=== PATIENT | male | born 1980 | race Caucasian/White ===

== ENCOUNTER 2023-03-13 22:15 | Emergency (ER) | payer OTHER, SELFPAY ==
[2023-03-13 22:20] VITALS: BP 122/78; PULSE 70; RESP 18; TEMP 36.4; O2SAT 100; BMI 20.1
--- NOTE | 2023-03-14 01:22 | ED_ITS ---
HPI - General Adult General Chief complaint: General Medical Stated complaint: pulled a muscle Time Seen by Provider: 03/14/23 01:11 Source: patient Mode of arrival: ambulatory Limitations: no limitations History of Present Illness HPI narrative: Patient complaining of pain in the right groin muscles started about 1 week ago Related Data Previous Rx's Medication Instructions Recorded cyclobenzaprine 10 mg tablet 10 mg PO Q8H #20 tabs 03/14/23 ibuprofen 600 mg tablet 600 mg PO Q6H PRN fever or pain 03/14/23 #30 tabs Allergies Allergy/AdvReac Type Severity Reaction Status Date / Time No Known Allergies Allergy Unverified 07/01/20 16:47 [No Known Allergies*] Review of Systems Review of Systems: Yes all other systems are reviewed and are negative Physical Exam ED Vital Signs: Vital Signs - 24 hr 03/13/23 22:20 Temperature 97.5 F Pulse Rate 70 Respiratory Rate 18 Blood Pressure 122/78 Pulse Oximetry 100 Oxygen Delivery Method Room Air BMI result Body Mass Index 20.1 Extrem Upper/lower leg/hip images: 1. Soft tissues tenderness right groin area increases on thigh flexion no s salima tenderness good range of movement neurovascular and no swelling of the muscle Discharge Plan Discharge Clinical Impression: Strain of muscle of right groin region Patient Disposition: Home, Self-Care Instructions: Groin Strain (ED) Additional Instructions: Apply ice and take pain medication and muscle relaxant as advised Prescriptions: New cyclobenzaprine 10 mg tablet 10 mg PO Q8H Qty: 20 0RF ibuprofen 600 mg tablet 600 mg PO Q6H PRN (Reason: fever or pain) Qty: 30 0RF
[2023-03-14] MEDS: Cyclobenzaprine HCl 10 MG TABLET PO (01:45)
[2023-03-14] MEDS: Ibuprofen 600 MG TABLET PO (01:45)
--- OUTSIDE RECORDS SUMMARY | 2023-03-14 01:45 | XMS_ITS | Continuity of Care Document ---
Author Name Unknown Organization [facility] ter Address [address] [place] [address]- Care Team Providers Care Building Superintendent Name Role Phone Narendra Simmons MD Primary Care Physician En[place] [facility] [place] Date(s): 02/09/20 - 02/10/[address] [address]- [facility] Attending Physician: Narendra Simmons MD Allergies, Adverse Reactions, Alerts Substance Reaction Severity Status codeine Rash Active amoxicillin rash [D]Vomiting Rash Active egg-containing compound Laryngospasm Acti ve Immunizations Given and Recorded Vaccine Date Status Refusal Reason Tet/Diphth/Acel, Pertussis (oldterm) 07/08/10 Give n Medications ProAir HFA 90 mcg/inh inhalation aerosol with adapter 2 puffs, Inhalation, Every 4 hours, PRN for wheezing, # 8.5 Gm, 0 Refills, Maintenance, Aerosol Start Date: 07/08/10 Status: Ordered Suboxone 8 mg-2 mg sublingual tablet, disintegrating 1 tablet, Sublingual, Daily, 0 Refills, Maintenance, Tablet Start Date: 02/28/10 Status: Ordered Problem List Condition Effective Dates Status Health Status Inform ant Acne(Confirmed) 1996 Active Drug addiction, narcotics(Confirmed) 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
--- OUTSIDE RECORDS SUMMARY | 2023-03-14 01:45 | XMS_ITS | Continuity of Care Document ---
Author Name Unknown Organization [facility] ter Address [address] [place] [address]- Care Team Providers Care Picc Nurse Name Role Phone Narendra Simmons MD Primary Care Physician [phone] Encounter [facility] [place] Date(s): 07/05/20 - 08/03/[address] [address]- [facility] Attending Physician: Narendra Simmons MD Allergies, Adverse [...]
--- OUTSIDE RECORDS SUMMARY | 2023-03-14 01:45 | XMS_ITS | Continuity of Care Document ---
Author Name Unknown Organization [facility] ter Address [address] [place] [address]- Care Team Providers Care Line Out Man Name Role Phone Narendra Simmons MD Primary Care Physician [phone] En[place] [facility] [place] Date(s): 03/09/20 - 03/10/[address] [address]- [facility] Attending Physician: Narendra Simmons [...]
--- OUTSIDE RECORDS SUMMARY | 2023-03-14 01:45 | XMS_ITS | Continuity of Care Document ---
Author Name Unknown Organization [facility] ter Address [address] [place] [address]- Care Team Providers Care Heating Mechanic Name Role Phone Narendra Simmons MD Primary Care Physician [phone] Encounter [facility] [place] Date(s): 01/12/20 - 01/13/[address] [address]- [facility] Attending Physician: Narendra Simmons MD Allergies, Adverse [...]
--- OUTSIDE RECORDS SUMMARY | 2023-03-14 01:45 | XMS_ITS | Continuity of Care Document ---
Author Name Unknown Organization [facility] ter Address [address] [place] [address]- Care Team Providers Care Suture Winder Hand Name Role Phone Narendra Simmons MD Primary Care Physician Encounter [facility] [place] Date(s): 10/21/19 - 10/22/[address] [address]- [facility] Attending Physician: Narendra Simmons MD Allergies, Adverse [...]
--- OUTSIDE RECORDS SUMMARY | 2023-03-14 01:45 | XMS_ITS | Continuity of Care Document ---
Author Name Unknown Organization [facility] ter Address [address] [place] [address]- Care Team Providers Care Floral Arranger Name Role Phone Narendra Simmons MD Primary Care Physician [phone] Encounter [facility] [place] Date(s): 11/17/19 - 11/18/[address] [address]- [facility] Attending Physician: Narendra Simmons MD Allergies, [...]
--- OUTSIDE RECORDS SUMMARY | 2023-03-14 01:45 | XMS_ITS | Continuity of Care Document ---
Author Name Unknown Organization [facility] ter Address [address] [place] [address]- Care Team Providers Care It Applications Manager Name Role Phone Narendra Simmons MD Primary Care Physician [place] [facility] [place](s): 05/04/20 - 05/05/[address] [address]- [facility] Attending Physician: Narendra Simmons MD Allergies, Adverse [...]
--- OUTSIDE RECORDS SUMMARY | 2023-03-14 01:45 | XMS_ITS | Continuity of Care Document ---
Author Name Unknown Organization [facility] ter Address [address] [place] [address]- Care Team Providers Care Jewel Waxer Name Role Phone Narendra Simmons MD Primary Care Physician Encounter [facility] [place] Date(s): 07/05/20 - 07/06/[address] [address]- [facility] Attending Physician: Narendra Simmons MD [...]
--- OUTSIDE RECORDS SUMMARY | 2023-03-14 01:45 | XMS_ITS | Continuity of Care Document ---
Author Name Unknown Organization [facility] ter Address [address] [place] [address]- Care Team Providers Care Clinical Marketing Manager Name Role Phone Narendra Simmons MD Primary Care Physician Encounter [facility] [place] Date(s): 12/15/19 - 01/13/[address] [address]- [facility] Attending Physician: Narendra Simmons MD Allergies, [...]
--- OUTSIDE RECORDS SUMMARY | 2023-03-14 01:45 | XMS_ITS | Continuity of Care Document ---
Author Name Unknown Organization [facility] ter Address [address] [place] [address]- Care Team Providers Care Fruit Or Nut Farm Worker Name Role Phone Narendra Simmons MD Primary Care Physician [place] [facility] [place](s): 09/22/19 - 09/23/[address] [address]- [facility] Attending Physician: Narendra Simmons MD Allergies, Adverse [...]
--- OUTSIDE RECORDS SUMMARY | 2023-03-14 01:45 | XMS_ITS | Continuity of Care Document ---
Author Name Unknown Organization [facility] ter Address [address] [place] [address]- Care Team Providers Care Tractor Trailer Driver Name Role Phone Narendra Simmons MD Primary Care Physician Encounter [facility] [place] Date(s): 04/02/20 - 04/03/[address] [address]- [facility] Attending Physician: Narendra Simmons MD Allergies, Adverse [...]
--- OUTSIDE RECORDS SUMMARY | 2023-03-14 01:45 | XMS_ITS | Continuity of Care Document ---
Author Name Unknown Organization [facility] ter Address [address] [place] [address]- Care Team Providers Care Truck Loader Name Role Phone Narendra Simmons MD Primary Care Physician Encounter [facility] [place] Date(s): 12/15/19 - 12/16/[address] [address]- [facility] Attending Physician: Narendra [...]
--- OUTSIDE RECORDS SUMMARY | 2023-03-14 01:45 | XMS_ITS | Continuity of Care Document ---
Author Name Unknown Organization [facility] ter Address [address] [place] [address]- Care Team Providers Care Disability Specialist Name Role Phone Narendra Simmons MD Primary Care Physician [phone] En[place] [facility] [place] Date(s[place] 06/04/20 - 06/05/[address] [address]- [facility] Attending Physician: Narendra Simmons MD [...]
== END 2023-03-14 01:47 | disposition home or self-care (01) ==
PROVIDERS: Emergency Provider Internal Medicine; PCP Internal Medicine
DX: S39.011A Strain of muscle, fascia and tendon of abdomen, initial encounter (principal); X58.XXXA Exposure to other specified factors, initial encounter; Y93.9 Activity, unspecified; Y92.9 Unspecified place or not applicable; Y99.9 Unspecified external cause status
CPT/HCPCS: 99283